=== PATIENT | female | born 2000 ===

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

== ENCOUNTER 2021-03-27 07:40 | Inpatient (IN) ==
[2021-03-27] MEDS ORDERED: MEPERIDINE 50 MG/1 ML VIAL IV PRN (08:47)
[2021-03-27] MEDS ORDERED: BUTORPHANOL 2 MG/ML VIAL IV PRN (08:47)
[2021-03-27] MEDS ORDERED: ONDANSETRON 4 MG/2 ML VIAL IV PRN (08:47)
[2021-03-27] MEDS ORDERED: OXYTOCIN/LR 20 UNIT/1,000 ML BAG IV SCH (09:00)
[2021-03-27] MEDS ORDERED: LACTATED RINGERS 1,000 ML IV SCH (09:00)
[2021-03-27 09:58] LABS: Basophils % 0.1 % (0.0-0.8); Eosinophils % 0.3 % (0.00-10.9); Hematocrit 31.1 VOL% (35.7-47.0); Hemoglobin 9.8 GM/DL (12.0-16.0); Immature Granulocytes % 0.5 %; Immature Granulocytes Absolute 0.04 #; Lymphocytes # 2.4 10*3/uL (1.4-4.0); Lymphocytes % 30.1 % (21.3-54.2); Mean Corpuscular HGB Conc 31.5 GM/DL (32-36); Mean Corpuscular Volume 82.7 FL (87-102); Mean Platelet Volume 9.5 FL (9.6-12.0); Monocytes % 5.3 % (1.7-12.7); Neutrophils % 63.7 % (38.7-73.9); Platelet Count 265 T/CUMM (130-400); Red Blood Count 3.76 MC/CUMM (3.8-5.5); Red Cell Distribution Width 15.7 % (9.3-17.3)
[2021-03-27 10:17] LABS: Alanine Aminotransferase 9 U/L (13-56); Albumin 2.8 G/DL (3.4-5.0); Alkaline Phosphatase 189 U/L (45-117); Aspartate Amino Transferase 8 U/L (0-37); Bilirubin,Total < 0.39 MG/DL (0.20-1.00); Blood Urea Nitrogen 4 MG/DL (7-18); Calcium 8.7 MG/DL (8.5-10.1); Carbon Dioxide 22 MMOL/L (21-32); Estimated Glom Filtration Rate 157 ML/MIN; Glucose 80 MG/DL (74-106); Osmolality,Calculated 265.1 MOS/KG (273-304); Potassium 3.7 MMOL/L (3.5-5.1); Sodium 135 MMOL/L (136-145); Total Protein 6.9 G/DL (6.4-8.2)
[2021-03-27] MEDS ORDERED: LACTATED RINGERS 1,000 ML IV ONE (10:44)
[2021-03-27] MEDS ORDERED: CITRIC ACID/SODIUM CITRATE 30 ML UDCUP PO ONE (10:44)
[2021-03-27] MEDS ORDERED: diphenhydrAMINE 50 MG/1 ML VIAL IV PRN ×2 (10:44)
[2021-03-27] MEDS ORDERED: ePHEDrine 50 MG/ML VIAL IV PRN (10:44)
[2021-03-27] MEDS ORDERED: NALOXONE 0.4 MG/ML VIAL IV PRN (10:44)
[2021-03-27] MEDS ORDERED: FAMOTIDINE 20 MG/2 ML VIAL IV ONE (10:44)
[2021-03-27] MEDS ORDERED: fentaNYL 2 MCG/ROPIV 0.2% EPID 100 ML EPIDURAL SCH (11:00)
[2021-03-27] MEDS ORDERED: METHYLERGONOVINE 0.2 MG/1 ML AMP ONE (14:27)
[2021-03-27] MEDS ORDERED: TRANEXAMIC ACID 1,000 MG/10 ML VIAL ONE (14:27)
[2021-03-27] MEDS ORDERED: miSOPROStoL 200 MCG TABLET ONE (14:27)
[2021-03-27] MEDS ORDERED: CARBOPROST TROMETHAMINE 250 MCG/ML AMP IM ONE (14:28)
[2021-03-27] MEDS ORDERED: SODIUM CHLORIDE 0.9% 0 ML IV ONE (14:28)
[2021-03-27 15:08] LABS: Cord Venous Blood HCO3 22.7 MMOL/L; Cord Venous Blood PCO2 40.4 MMHG; Cord Venous Blood PO2 42.2 MMHG
[2021-03-27] MEDS ORDERED: OXYTOCIN/LR 20 UNIT/1,000 ML BAG IV ONE (17:09)
[2021-03-27] MEDS ORDERED: ACETAMINOPHEN 325 MG TABLET PO PRN (17:09)
[2021-03-27] MEDS ORDERED: IBUPROFEN 800 MG TABLET PO PRN (17:09)
[2021-03-27] MEDS ORDERED: MEASLES/MUMPS/RUBELLA VACCINE 0.5 ML VIAL SUBCUT ONE (17:09)
[2021-03-27] MEDS ORDERED: WITCH HAZEL PADS 100/JAR TOP PRN (17:09)
[2021-03-27] MEDS ORDERED: LANOLIN 50% CREAM 0.3 OZ TUBE TOP PRN (17:09)
[2021-03-27] MEDS ORDERED: BENZOCAINE 20%/MENTHOL 0.5% SPRAY 56 GM CAN TOP PRN (17:09)
[2021-03-27] MEDS ORDERED: RHO(D) IMMUNE GLOBULIN 300 MCG SYRINGE IM ONE (17:09)
[2021-03-27] MEDS ORDERED: HYDROCORTISONE 2.5% RECTAL CREAM 30 GM TUBE TOP PRN (17:09)
[2021-03-27] MEDS ORDERED: BISACODYL 10 MG SUPP RECTAL PRN (17:09)
[2021-03-27] MEDS ORDERED: DIPH/TET/ACEL PERT BOOSTER VACCINE 0.5 ML VIAL IM ONE (17:09)
[2021-03-27] MEDS ORDERED: oxyCODONE/ACETAMINOPHEN 5-325 MG TABLET PO PRN ×2 (17:09)
[2021-03-27] MEDS: DOCUSATE SODIUM 100 MG CAPSULE PO SCH (20:49)
[2021-03-28 06:04] LABS: Basophils % 0.2 % (0.0-0.8); Eosinophils % 0.5 % (0.00-10.9); Hematocrit 29.4 VOL% (35.7-47.0); Hemoglobin 9.3 GM/DL (12.0-16.0); Immature Granulocytes % 0.5 %; Lymphocytes # 2.6 10*3/uL (1.4-4.0); Lymphocytes % 26.1 % (21.3-54.2); Mean Corpuscular HGB Conc 31.6 GM/DL (32-36); Mean Corpuscular Volume 81.2 FL (87-102); Mean Platelet Volume 9.4 FL (9.6-12.0); Neutrophils % 65.7 % (38.7-73.9); Platelet Count 220 T/CUMM (130-400); Red Blood Count 3.62 MC/CUMM (3.8-5.5); Red Cell Distribution Width 15.5 % (9.3-17.3)
[2021-03-28 06:05] LABS: Eosinophils # 0.1 10*3/uL (0.0-0.87); Immature Granulocytes Absolute 0.05 #
[2021-03-28] MEDS: DOCUSATE SODIUM 100 MG CAPSULE PO SCH (08:43)
[2021-03-28] MEDS ORDERED: FERROUS SULFATE 325 MG TABLET PO SCH (09:00)
[2021-03-28 11:41] VITALS: BP 109/63
== END 2021-03-28 16:30 | disposition home or self-care (01) | DRG 560 ==
LOC: N.LDOUT 07:40 → N.LD 07:41 → N.OB 17:08
PROVIDERS: ADMIT Obstetrics & Gynecology; ATTEND Obstetrics & Gynecology